=== PATIENT | female | born 1950 | race Caucasian/White ===

== ENCOUNTER 2024-06-17 10:35 | Day surgery (SDC) | payer OTHER ==
[~2024-06-17] VITALS: Ht 162.6 cm; Wt 84.9 kg
[~2024-06-17 10:35] MED LIST: HYDACE5 PO; IBUP800 PO; LORA10ER PO; Lactated Ringer's 1,000 ML IV ONE
[2024-06-17] MEDS ORDERED: Clindamycin 900mg in D5W 50ML 50 ML IV ONE (11:11)
[2024-06-17] MEDS ORDERED: EUTHYROX50 MC1 PO (11:24)
[2024-06-17] MEDS ORDERED: LATANOPROST2.5 M3 (11:24)
[2024-06-17] MEDS ORDERED: METFORMIN HCL500 M3 PO (11:24)
[2024-06-17] MEDS ORDERED: ATORVASTATIN CA20 MG PO (11:25)
[2024-06-17] MEDS ORDERED: Lactated Ringer's 1,000 ML IV ONE (11:30)
[2024-06-17] MEDS ORDERED: Bupivacaine 0.5% W/EPI 1:200000 SDV 30 ML Vial ONE (11:39)
[2024-06-17] MEDS ORDERED: Lidocaine HCl 2% 10 ML SDA ONE (11:39)
[2024-06-17] MEDS ORDERED: Midazolam HCl 1MG / ML 2ML Vial ONE (11:42)
[2024-06-17] MEDS ORDERED: propofoL 40 ML IV ONE (11:42)
[2024-06-17] MEDS ORDERED: Lidocaine HCl 2% Jelly 120MG/6ML SYR (20MG PER ML) ONE (11:47)
--- NOTE | 2024-06-17 12:27 | NUR ---
06/17/24 1227 Raven Monteiro PT. ABLE TO FEEL TOUCH TO TOES TO LEFT FOOT. LEFT TOES WITH GOOD CAP REFILL.
[2024-06-17 13:13] VITALS: BP 155/65
== END 2024-06-17 13:45 | disposition home or self-care (01) ==
LOC: ORSCSDS 10:35
PROVIDERS: Podiatrist Foot & Ankle Surgery
PROC: 0KNW0ZZ Release Left Foot Muscle, Open Approach (ICD-10-PCS; principal; 2024-06-17 12:00)
DX: M72.2 Plantar fascial fibromatosis (principal); E11.9 Type 2 diabetes mellitus without complications; E78.00 Pure hypercholesterolemia, unspecified; E03.9 Hypothyroidism, unspecified; Z79.84 Long term (current) use of oral hypoglycemic drugs; Z79.899 Other long term (current) drug therapy
CPT/HCPCS: 82947; A9270; J2003; J2250; J2704; J7120

== ENCOUNTER 2025-03-06 16:26 | Emergency (ER) | payer OTHER ==
[~2025-03-06] VITALS: Ht 162.6 cm; Wt 79.4 kg
[~2025-03-06 16:26] MED LIST changes: +ATORVASTATIN CA20 MG PO; +Amlodipine Bes2.5 MG PO; +EUTHYROX50 MC1 PO; +LATANOPROST2.5 M3; -Lactated Ringer's 1,000 ML IV ONE; +METFORMIN HCL500 M3 PO
[2025-03-06] MEDS ORDERED: DiphenhydrAMINE HCl 50 MG/ML 1ML Vial IV ONE (16:40)
[2025-03-06] MEDS ORDERED: Prochlorperazine Edisylate 10 mg Vial IV ONE (16:40)
[2025-03-06] MEDS ORDERED: Ketorolac Tromethamine 15mg Vial IV ONE ×2 (16:40→18:35)
[2025-03-06 17:14] LABS: BASOPHILS ABSOLUTE AUTO 0.01 K/mm3 (0.00-0.23); BASOPHILS PERCENT AUTO 0 % (0-2); EOSINOPHILS ABSOLUTE AUTO 0.26 K/mm3 (0.00-0.68); EOSINOPHILS PERCENT AUTO 5 % (0-6); Hematocrit 36.8 % (33.0-51.0); Hemoglobin 12.7 g/dL (11.5-16.0); IMMATURE GRAN ABSOLUTE AUTO 0.00 K/mm3 (0.00-0.10); IMMATURE GRAN PERCENT AUTO 0 % (0-1); LYMPHOCYTES ABSOLUTE AUTO 1.00 K/mm3 (0.84-5.20); LYMPHOCYTES PERCENT AUTO 20 % (21-46); MONOCYTES ABSOLUTE AUTO 0.46 K/mm3 (0.16-1.47); MONOCYTES PERCENT AUTO 9 % (4-13); Mean Corpuscular HGB Conc 34.5 g/dL (31.5-36.5); Mean Corpuscular Volume 95 fL (80-100); NEUTROPHILS ABSOLUTE AUTO 3.34 K/mm3 (1.96-9.15); NEUTROPHILS PERCENT AUTO 66 % (41-73); NRBC ABSOLUTE 0.00 K/mm3 (0.00-0.02); NRBC Auto 0.0 /100 WBC (0.0-0.2); Platelet Count 167 K/mm3 (150-400); RDW Coefficient Variation 12.0 % (11.7-14.2); RDW Standard Deviation 41.4 fL (35.1-46.3)
[2025-03-06 17:54] LABS: Alanine Aminotransfer (ALT/SGP 34.0 U/L (12-78); Albumin, Blood 4.0 g/dL (3.4-5.0); Albumin/Globulin Ratio 1.2 (0.8-1.8); Anion Gap 8.0 mmol/L (3-11); Aspartate Aminotrans (AST/SGOT 29.0 U/L (12-37); Bilirubin, Total 0.6 mg/dL (0.1-1.0); Blood Urea Nitrogen 15.0 mg/dL (8-24); CO2, Blood 25.0 mmol/L (21-32); Calcium, Blood 9.6 mg/dL (8.5-10.1); Chloride, Blood 105.0 mmol/L (98-108); Creatinine, Blood 0.92 mg/dL (0.40-1.00); Globulin, Blood 3.3 g/dL (2.2-4.0); Glucose, Blood 137.0 mg/dL (70-99); Magnesium, Blood 2.1 mg/dL (1.6-2.4); Phosphorus, Blood 3.3 mg/dL (2.5-4.9); Potassium, Blood 4.0 mmol/L (3.5-5.5); Sodium, Blood 134.0 mmol/L (136-145); Total Protein, Blood 7.3 g/dL (6.4-8.2)
[2025-03-06] MEDS ORDERED: Mag Sulfate 1 GM/D5% 100ML 100 ML IV ONE (19:30)
[2025-03-06 20:50] VITALS: BP 131/67
== END 2025-03-06 21:07 | disposition home or self-care (01) ==
LOC: ER 16:26
PROVIDERS: Physician Assistant
DX: R51.9 Headache, unspecified (principal); E11.9 Type 2 diabetes mellitus without complications; Z88.0 Allergy status to penicillin; Z88.8 Allergy status to other drugs, medicaments and biological substances; Z79.84 Long term (current) use of oral hypoglycemic drugs; Z79.890 Hormone replacement therapy; Z79.899 Other long term (current) drug therapy; Z59.89 Other problems related to housing and economic circumstances
CPT/HCPCS: 70450; 80053; 83735; 84100; 84484; 85025; 93005; 93010; 96365; 96375; 96376; 99284-25; J0780; J1200; J1885; J3475